=== PATIENT | male | born 2005 | race Two or more races ===

== ENCOUNTER 2024-05-09 01:45 | Emergency (ER) | payer MEDICAID, SELFPAY ==
[2024-05-09 01:51] VITALS: BP 152/90; PULSE 69; RESP 19; TEMP 36.4; O2SAT 96; BMI 31.7
--- NOTE | 2024-05-09 02:18 | EDNOTE_ITS ---
<Statement entered by Yenifer Barrera MD - 05/09/24 04:08> As co-signing physician, I was present and available for consult prn. I concur with the plan and care as documented by the midlevel provider. ED Asthma RME/HPI General Chief Complaint: Flu Like Symptoms Stated Complaint: COUGHING, DIFF BREATHING Time Seen by Provider: 05/09/24 02:13 Arrival date/time: 05/09/24 01:45 18M with history of asthma presents to ED with 1 day of wheezing and SOB. Limitations: no limitations Related Data Home Medications ?Medication ?Instructions ?Recorded ?Confirmed montelukast 5 mg chewable tablet 5 mg PO QPM 08/01/18 03/27/19 albuterol sulfate 90 mcg/actuation 2 puff inhalation QID PRN 03/27/19 03/27/19 aerosol inhaler (ProAir HFA) Shortness Of Breath Or Wheezing tiotropium bromide 1.25 1 puff inhalation BID 03/27/19 03/27/19 mcg/actuation mist for inhalation (Spiriva Respimat) Previous Rx's ?Medication ?Instructions ?Recorded prednisone 50 mg tablet 50 mg PO QDAY #3 tabs 03/27/19 albuterol sulfate 90 mcg/actuation 2 puff inhalation Q6H PRN 05/09/24 aerosol inhaler (Ventolin HFA) shortness of breath or wheezing #8.5 grams prednisone 50 mg tablet 50 mg PO QDAY 4 days #4 tabs 05/09/24 Allergies Allergy/AdvReac Type Severity Reaction Status Date / Time No Known Allergies Allergy Verified 05/05/19 17:05 Review of Systems Review of Systems Systems Reviewed: All systems reviewed, normal except as documented Constitutional Constitutional: Reports system reviewed and no additional complaints, except as documented, Denies fever(s) and Denies headache(s) ENT Ears, Nose, Mouth, and Throat: Denies disequilibrium and Denies headache(s) Cardiovascular Cardiovascular: Reports system reviewed and no additional complaints, except as documented, Denies chest pain and Reports dyspnea Respiratory Respiratory: Reports system reviewed and no additional complaints, except as documented, Reports as per HPI, Denies cough, Reports dyspnea and Reports wheezing Gastrointestinal Gastrointestinal: Reports system reviewed and no additional complaints, except as documented, Denies abdominal pain, Denies nausea and Denies vomiting Neurologic Neurologic: Reports system reviewed and no additional complaints, except as documented, Denies confusion, Denies disequilibrium and Denies headache(s) Psychiatric Psychiatric: Denies confusion Allergic/Immunologic Allergic/Immunologic: Reports wheezing Past Medical History Past Medical History CARDIAC: Negative Congestive Heart Failure RESPIRATORY: Positive Asthma; Negative Chronic Obstructive Pulmonary Disease (COPD) GENITOURINARY: Negative Renal Disease ENDOCRINE: Negative Diabetes Mellitus Type 1 or Diabetes Mellitus Type 2 OTHER HISTORY: Negative Blood Transfusions Social History SMOKING STATUS: Never smoker SECOND HAND EXPOSURE: No SUBSTANCE USE: does not use ED Exam General Limitations: Present no limitations General appearance: Present alert and in no apparent distress Head Head exam: Present atraumatic Eye Eye exam: Present normal appearance, PERRL and EOMI ENT ENT exam: Present normal exam, normal oropharynx and mucous membranes moist Neck Neck exam: Present normal inspection, full ROM and trachea midline Chest Chest inspection: Present normal inspection and symmetric chest wall rise Respiratory Respiratory exam: Present wheezes Cardiovascular Cardiovascular exam: Present regular rate, normal rhythm and normal heart sounds Abdominal Exam Abdominal exam: Present soft and normal bowel sounds Extremities Exam Extremities exam: Present normal inspection and full ROM Back Exam Back exam: Present normal inspection and full ROM Neurological Exam Neurological exam: Present alert, oriented X3 and CN II-XII intact Psychiatric Psychiatric exam: Present normal affect and normal mood Skin Skin exam: Present warm, dry, intact and normal color Course Quality Measures none Orders Category Date Time Status Budesonide Rt [Pulmicort Rt Dulce] Med 05/09/24 02:14 Discontinued 0.5 mg INH X1 ONE Dexamethasone Inj [Decadron Inj] Med 05/09/24 02:13 Discontinued 10 mg PO X1 ONE Ipratropium Delmar Rt Dulce [Atrovent Rt Dulce] Med 05/09/24 02:13 Discontinued 1 mg INH X1 ONE Levalbuterol Rt [Xopenex Rt Dulce] Med 05/09/24 02:13 Discontinued 5 mg INH X1 ONE Sodium Chloride Rt Dluce 0.9% [NS Rt Dulce 0.9%] Med 05/09/24 02:13 Active 3 ml INH PRN PRN Vital Signs Vital signs: Vital Signs Temperature 97.6 F 05/09/24 01:51 Pulse Rate 69 05/09/24 01:51 Respiratory Rate 19 05/09/24 01:51 Blood Pressure 152/90 H 05/09/24 01:51 Pulse Oximetry (%) 96 05/09/24 01:51 Oxygen Delivery Method Room Air 05/09/24 01:51 Asthma MDM Narrative MDM Narrative:: 18M with history of asthma presents to ED with 1 day of wheezing and SOB. Physical exam reveals some wheezing in lungs and restricted outflow/input. Patient is afebrile, calm, and alert. Meds relieved symptoms. Patient data External records reviewed:: [facility] previous records Clinical information provided by:: patient Social determinants that could affect healthcare access:: none Patient has the following chronic illnesses:: none How is presenting disease/condition affected by chronic disease/condition?: no chronic disease Evaluation data The following diagnostics were reviewed and interpreted by me:: other (specify) (none) Lab and/or radiology exams considered but not ordered:: not ordered Interpretation Summary: n/a Medications / Prescriptions Medications or Prescriptions considered but not ordered:: ordered Medication administrations:: Medication Administration History Sodium Chloride (Sodium Chloride Rt Dulce 0.9% 3 Ml Nebu) 3 ml INH PRN PRN PRN Reason: SOLN Stop: 06/08/24 02:12 Discontinued Medications Budesonide (Budesonide Rt 0.5 Mg/2 Ml Nebu) 0.5 mg INH X1 ONE Stop: 05/09/24 02:15 Dexamethasone Sodium Phosphate (Dexamethasone Sod Phos Inj 10 Mg/Ml Vial) 10 mg PO X1 ONE Stop: 05/09/24 02:14 Ipratropium Delmar (Ipratropium Rt 0.5 Mg/ 2.5 Ml Nebu) 1 mg INH X1 ONE Stop: 05/09/24 02:14 Levalbuterol HCl (Levalbuterol Rt 1.25 Mg/0.5 Ml Nebu) 5 mg INH X1 ONE Stop: 05/09/24 02:14 Consultations Consultation(s) initiated? (list below): No Diagnosis Differential diagnosis asthma: Acute exacerbation, Status asthmaticus, Acute asthmatic bronchitis, PE, Pneumonia, COPD exacerbation, Pulmonary edema systolic, Pulmonary edema dystolic, ARDS, Pneumothorax and Foreign body in trachea Most likely diagnosis given after review of the tests above:: asthma exacerbation Admission Indicated Admission indicated?: not indicated Admission Request Was there a request for admission?: No Disposition Plan Disposition Plan: Discharge Discharge Attestation Discharge Attestation: The patient and all family members were given an opportunity to ask questions and understood the discharge instructions. Discharge instructions specifically effects, indications for sooner follow up or return to the emergency department, and the expected course of current diagnosis. Patient condition: Stable Discharge Plan Plan Patient Disposition: HOME (Self Care) Disposition Comment: Stable Prescriptions/Referrals Prescriptions/Med Rec: New prednisone 50 mg tablet 50 mg PO QDAY 4 Days Qty: 4 0RF albuterol sulfate [Ventolin HFA] 90 mcg/actuation HFA aerosol inhaler 2 puff inhalation Q6H PRN (Reason: shortness of breath or wheezing) Qty: 8.5 0RF No Action montelukast 5 mg Tablet,Chewable 5 mg PO QPM Spiriva Respimat 1.25 mcg/actuation Mist 1 puff INHALATION BID albuterol sulfate [ProAir HFA] 90 mcg/actuation Hfa Aerosol Inhaler 2 puff INHALATION QID PRN (Reason: Shortness Of Breath Or Wheezing) prednisone 50 mg tablet 50 mg PO QDAY Qty: 3 0RF Problem List Clinical Impression: Asthma with acute exacerbation Patient/Caregiver Discharge Instructions Additional Instructions: Please follow-up with PCP within 24-48 hours and return immediately if symptoms worsen. Print Language: Hungarian Stand Alone Forms: Patient Portal Info Letter PA/CLIENT TECHNICAL SPECIALIST Supervising Physician ANTHONY/YOHAN Supervising Physician: Dr. Barrera
[2024-05-09] MEDS: DEXAMETHASONE SOD PHOS INJ 10 MG/ML VIAL PO (02:21)
[2024-05-09] MEDS: LEVALBUTEROL RT 1.25 MG/0.5 ML NEBU 5 MG INH (02:23)
[2024-05-09] MEDS: BUDESONIDE RT 0.5 MG/2 ML NEBU INH (02:24)
[2024-05-09] MEDS: IPRATROPIUM RT 0.5 MG/ 2.5 ML NEBU 1 MG INH (02:24)
[2024-05-09 02:30] VITALS: PULSE 106; RESP 20; O2SAT 98
[2024-05-09 03:50] VITALS: BP 143/72; PULSE 68; RESP 20; O2SAT 97
[2024-05-09 04:05] VITALS: BP 148/86; PULSE 86; RESP 18; TEMP 36.8; O2SAT 98
== END 2024-05-09 04:05 | disposition home or self-care (01) ==
PROVIDERS: Emergency Provider Emergency Medicine; PCP Family Medicine
DX: J45.901 Unspecified asthma with (acute) exacerbation (principal)
CPT/HCPCS: 94644; 99283; J1100